=== PATIENT | male | born 1965 | race Caucasian/White ===

== ENCOUNTER → 2016-04-22 | Outpatient (CLI) | payer OTHER ==
[~2016-04-22] MED LIST: AMOX875T2 PO; FLUT16SP NS
[2016-04-22 11:06] VITALS: BP 133/83
--- NOTE | 2016-04-22 11:06 | Urgent Care T Sheet Gen (E) ---
Intake General Temperature (Fahrenheit): 97.8 Pulse: 72 Blood Pressure Systolic: 133 Blood Pressure Diastolic: 83 Respirations: 18 SPO2: 96 Chief Complaint: UC Ear/Nose/Throat Complaint Description of Symptoms Complains of cough sore throat and er pain with fullness now close to 2 weeks. He saw his PCP last week and has tried all the OTC measures to get well. Mustapha pot has not helped, coughing and thick green sputum coming up, left ear sore and feels miserable. He is usually well and has not been on any meds in years for infections. Reports low grade temps. No body aches. Sinuses feel full to him. Source: Patient History of Present Illness Onset & Duration: Weeks Associated Symptoms: Cough, Nasal congestion, Sinus congestion Recent Trauma: No Allergies: Coded Allergies: No Known Drug Allergies (Unverified , 04/22/16) Additional Comment Has tired OTC meds and mustapha pot - no help Respiratory Constitutional Symptoms: Fever EENTM: Ear pain Nose Congestion Throat pain Other (sinus fullness and congestion) Respiratory: Cough (thick green mucous no blood) Cardiovascular: No Chest pain Gastrointestinal/Abdominal: No symptoms reported Genitourinary: No symptoms reported All Other Systems Reviewed Remaining Systems: All other systems reviewed with negative findings Past Ozdekpb-Gzjjit-Jksidh Hx Patient's Social History Alcohol Use: Denies Use Recreational Drug Use: Denies Use Surgeries/Hospitalizations Hospitalization/Surgery Hx: healthy Physical Exam Physical Exam General Appearance: WD/WN No apparent distress Eyes, Ears, Nose, Throat Ex: PERRL/EOMI TM abnormal (R) (red streaked and TM slight pink) TM abnormal (L) (dull with fluid noted behind TM) Pharyngeal erythema (marked with green discharge posterior pharynx noted- hanging- palate red) Neck Exam: Full range of motion Supple Normal inspectionNo Lymphadenopathy Respiratory Exam: Lungs clear Normal breath sounds No respiratory distress No accessory muscles usedNo Accessory muscle use, No Wheezes Cardiovascular Exam: Regular rate, rhythm No murmur Skin Exam: Normal color Warm/dry/intact No rashes Neurologic/Psychiatric Exam: Oriented times 4 CN's II-X nml Departure Urgent Care Impression Chief Complaint: UC Ear/Nose/Throat Complaint Impression: Primary Impression: Sinusitis Qualified Code: J01.10 - Acute frontal sinusitis, unspecified Departure Disposition: 01 HOME OR SELF-CARE Condition: Stable Additional Instructions: Long talk with him-he declined strep swab and due to length of illness and findings will treat. rest hydrate Tylenol for pain or fever f/u Dr Prakash as needed He agrees to plan of care. change tooth brush in 48 hours Scripts Fluticasone Propionate 16 Gm [place].susp16 Gm NS DAILY #1 BTL 2 sprays each nare daily Prov:OCTAVIANO HOOD APRN () 04/22/16 Amoxicillin 875 Mg [id number] Mg PO BID #20 TAB Ref 0 Prov:OCTAVIANO HOOD APRN () 04/22/16 End of report . OCTAVIANO HOOD APRN () Apr 22, 2016 11:06
== END ==
LOC: MHUC 10:45
PROVIDERS: ATTEND Nurse Practitioner
DX: J01.10 Acute frontal sinusitis, unspecified (principal)
CPT/HCPCS: 99213